=== PATIENT | female | born 1990 | race Caucasian/White ===

== ENCOUNTER 2017-01-03 16:11 | Outpatient (CLI) | payer OTHER ==
--- NOTE | 2017-01-03 18:51 | DIAGNOSTIC IMAGING REPORT ---
PROCEDURE: US 1ST TRIMESTER INDICATION: DATING AND VIABILITY TECHNIQUE: Kunz scale, color, and spectral Doppler transabdominal sonographic images of the first trimester gravid uterus were obtained. COMPARISON: None. FINDINGS: TRANSABDOMINAL SCANS: The gravid uterus is anteverted in position and contains a fundal gestational sac with a moderate decidual response. No perigestational hemorrhage. The cervix is closed and measures about 3.8 cm in length. A single viable intrauterine fetus with heart rate of 149 beats per minute is present. The fetus is in transverse lie. Placenta is developing posteriorly. Biparietal diameter 2.3 cm, 13-week 6 days Head circumference 8.5 cm, 13 weeks 5 days Abdominal circumference 6.8 cm, 13 weeks 3 days Femur length 1.2 cm, 13 weeks 4 days [place]-rump length 7.8 cm, 13 weeks 6 days Estimated weight 77 g plus/minus 12 g Composite gestational age 13 weeks 5 days No suspicious masses in the maternal adnexa. Ovaries are not visible. IMPRESSION: 1. Single living intrauterine with gestational age of 13 weeks 5 days and estimated due date of 07/06/2017. 2. Closed cervix and no perigestational hemorrhage.
== END 2017-01-03 23:00 ==
LOC: US SRH 16:11
DX: Z34.91 Encounter for supervision of normal pregnancy, unspecified, first trimester (principal); Z3A.13 13 weeks gestation of pregnancy